=== PATIENT | female | born 1975 | race Caucasian/White ===

== ENCOUNTER 2020-10-05 09:06 | Day surgery (SDC) | payer OTHER, SELFPAY ==
--- NOTE | 2020-10-04 11:55 | HP.PCM_ITS ---
History and Physical Date of Admission: 10/05/20 Pre-Op History and Physical ? HPI: The patient is a 45 year old female presenting for pre-operative visit. She is scheduled for hysteroscopy, D&C, Jojo endometrial ablation, for abnormal uterine bleeding. Patient has failed Mirena IUD. Is not a candidate for combined oral contraceptives due to history of migraines with aura on 10/05/20. Procedure discussed along with risks, benefits and complications. Other alternatives discussed for management. Consent form signed? Yes. ? ? PAST MEDICAL HISTORY PAST MEDICAL HISTORY Diagnosis Date ? Asthma ? ? Crohn's ? ? Physical deconditioning 08/24/2012 ? Psoriasis ? ? Uveitis ? ? ? PAST SURGICAL HISTORY PAST SURGICAL HISTORY Procedure Laterality Date ? ANESTH, SECTION ? 1992 ? c section ? BOWEL RESECTION HX ? 07/2015 ? LUMPECTOMY/RADIOTHERAPY DIAG MAMM/A10 ? 1997 ? PAST SURGICAL HISTORY OF ? ? ? appendectomy ? ? ? CURRENT MEDICATIONS Current Outpatient Medications Medication Sig Dispense Refill ? rizatriptan ([employer]) 10 mg disintegrating tablet rizatriptan 10 mg disintegrating tablet take one at onset of migraine may repeat in 2 hours. no more than 2 in 24 hrs ? ? ? clobetasol (TEMOVATE) 0.05 % cream clobetasol 0.05 % topical cream APPLY A THIN LAYER TO THE AFFECTED AREA(S) BY TOPICAL ROUTE 2 TIMES PER DAY ? ? ? albuterol HFA (PROAIR HFA) 90 mcg/actuation inhaler Inhale 2 Puffs as instructed every 4 hours as needed. 1 Inhaler 11 ? mometasone (NASONEX) 50 mcg/actuation nasal spray Use 2 Sprays in the nose once daily. 3 Bottle 3 ? Levocetirizine (XYZAL) 5 mg tablet Take 1 tablet by mouth once daily. 90 tablet 3 ? albuterol (PROVENTIL) 2.5 mg/0.5 mL nebulizer solution Use 0.5 mL via nebulizer every 6 hours as needed for Wheezing/Shortness of Breath. 100 Vial 0 ? MAGNESIUM CARBONATE ORAL Take 1 capsule by mouth once daily. ? ? ? inFLIXimab (REMICADE) 100 mg injection 700 MG IV Q 8 WKS. PREMEDICATE WITH TYLENOL 650 MG PO, BENADRYL 50 MG PO 7 Vial 8 ? Cholecalciferol, Vitamin D3, 3,000 unit tab Take 1 tablet by mouth once daily. ? ? ? KRILL OIL ORAL Take 1 tablet by mouth once daily. ? ? ? LACTOBACILLUS ACIDOPHILUS (PROBIOTIC ORAL) Take by mouth. Occasionally. ? ? ? MULTIVITAMIN TAB Take one(1) tablet occasionally. ? 0 ? fluticasone-salmeterol HFA (ADVAIR HFA) 230-21 mcg/actuation inhaler Inhale 2 Puffs as instructed twice daily. 1 Inhaler 11 ? tretinoin (RETIN-A) 0.05 % cream Apply a pea size amount as tolerated at night to face 45 g 6 ? No current facility-administered medications for this visit. ? Facility-Administered Medications Ordered in Other Visits Medication Dose Route Frequency Provider Last Rate Last Admin ? iron sucrose 200 mg in NaCl 0.9% 100ml (VENOFER) 200 mg INTRAVENOUS ONCE Jon A Masci ? diphenhydrAMINE 50 mg injection (BENADRYL) 50 mg INTRAVENOUS PRN Jon A Masci ? NaCl 0.9% iv infusion 500-999 mL/hr INTRAVENOUS PRN Jon A Masci ? hydrocortisone sodium succinate (PF) 100 mg injection (Solu-CORTEF) 100 mg INTRAVENOUS PRN Jon A Masci ? EPINEPHrine HCl (PF) 1 mg/mL (1 mL) 0.3 mg injection 0.3 mg INTRAMUSCULAR PRN Jon A Masci ? ? ALLERGIES: Asacol [Mesalamine], Gadolinium-Containing Contrast Media, Humira [Adalimumab], Imuran [Azathioprine Sodium], and Sulfa (Sulfonamide Antibiotics) ? PERSONAL HISTORY: SOCIAL HISTORY Social History ? Tobacco Use ? Smoking status: Former Smoker ? ? Packs/day: 1.00 ? ? Years: 10.00 ? ? Pack years: 10.00 ? ? Types: Cigarettes ? ? Quit date: 01/24/1995 ? ? Years since quittin.7 ? Smokeless tobacco: Never Used Substance Use Topics ? Alcohol use: Yes ? ? Comment: occassionally ? Drug use: No ? FAMILY HISTORY: FAMILY HISTORY FAMILY HISTORY Problem Relation Age of Onset ? other (juvenile rheumatoid arthritis) Son ? ? other (ankylosing spondylitis) Son ? ? other (Crohns) Mother ? ? other (Liver cancer) Mother ? ? Arthritis Daughter ? ? 2 daughters juvenile arthritis ? Heart Father ? ? ? REVIEW OF SYMPTOMS: negative except as noted above PHYSICAL EXAMINATION: ? VITALS: Blood pressure 108/70, height 5' 5 (1.651 m), weight 184 lb (83.5 kg), last menstrual period 09/08/2020. ? GENERAL: The patient is well nourished, well hydrated in no acute distress. , The patient is oriented to time, place, and person. NECK: Supple. No lynphadenopathy, normal thyroid, no thyromegaly. GENITALIA: exam deferred WET PREP: Not indicated ? Indication Abnormal uterine bleeding Impression Uterus normal size and contour. Endometrial thickness 2.9mm. There are no endometrial lesions identified. The myometrium is heterogeneous which can be seen with adenomyosis. There are no fibroids noted. There is no IUD appreciated. Right ovary not visualized Left ovary appears normal. no free fluid in the culdesac Recommendations Follow up as clinically indicated. Menstrual History LMP on 08/18/2020 Method Transvaginal, 3D ultrasound examination. Uterus Uterus: Visualized Uterus position: anteverted Myometrium: suspicious of adenomyosis Uterus long 90 mm Uterus ap 42 mm Uterus tr 48 mm Uterus Vol 95.3 cm? Endometrial thickness, total 2.9 mm IUCD Position control Location: no IUCD seen in the endometrial cavity Right Ovary Rt ovary: Not visualized Left Ovary Lt ovary: Visualized Lt ovary D1 19 mm Lt ovary D2 11 mm Lt ovary D3 12 mm Lt ovary Vol 1.3 cm? Cul de Sac Visualized. no free fluid visualized ? IMPRESSION: AUB, failed Mirena IUD, not OCPcandidate ? PLAN: Hysteroscopy, D&C, Jojo Ablation ? Pt has been counseled on risks/benefits and alternatives of surgery including but not limited to anesthesia, bleeding, infection, uterine perforation with subsequent injury to pelvic structures including bowel, bladder, ureters and ve ssels. Pt wishes to proceed with surgery at this time. Covid testing and risks reviewed. ? Discussed with the patient if she fails this would recommend a hysterectomy. Patient does have a history of Crohn's disease a previous bowel resection so she is a high risk surgical candidate. Ultrasound does show possible adenomyosis but based on her age of 45 were hoping that the Jojo would at least temporize the bleeding for her to progress to menopausal status. ? ? ? I have reviewed and updated past medical and surgical history, medications and allergies Nimco Herndon MD Procedure Criteria Procedure Type: Elective COVID Risk Discussion: The surgeon/proceduralist and patient have discussed in detail the risk of exposure to and/or potential harm posed by the COVID-19 virus with having a surgery/procedure at this time versus the risk of delaying the surgery/procedure. It is not possible to know either the risk of delaying the surgery or procedure or chance of getting an infection with perfect accuracy, but a joint decision was made between the patient and the surgeon/proceduralist to proceed at this time with the scheduled surgery/procedure as indicated on the consent form.
[2020-10-05] VITALS (8 sets, daily range): BP systolic 103–134; BP diastolic 71–87; PULSE 83–102; RESP 16–18; TEMP 36.4–37.2; O2SAT 96–100; BMI 30.8
[2020-10-05 09:30] LABS: Internal QC Validated? YES +Cl - CLEAR BKGD; Pregnancy, Urine Negative Negative
[2020-10-05 09:36] LABS: Hemoglobin 12.4 g/dL (12.0-15.0); Mean Corp Hgb Conc 32.6 g/dL (32-36); Mean Corpuscular Hgb 29.9 pg (27.0-32.0); Mean Corpuscular Volume 91.6 fL (81-99); Mean Platelet Vol. 8.8 fl (6.2-12.0); Platelet Count 465 K/mm3 (150-450); RBC Distribution Width CV 13.2 % (11.6-14.6); RBC Distribution Width SD 44.1 fl (35.1-43.9); Red Blood Count 4.15 M/mm3 (4.2-5.4); White Blood Count 6.7 K/mm3 (4.4-11.0)
[2020-10-05] MEDS: Lactated Ringers 1,000 ML 100 ML IV (09:47)
--- NOTE | 2020-10-05 10:30 | EMB_PTH ---
PATIENT: OSVALDO GABRIEL LOC: [facility] [place][id number] AGE/SX: 45/F ROOM: RE10/05/[address]: Dr. Nimco Decker, MDDOB: 1975 BED: DIS: 10/05/2020 SPEC #: [id number] RECD: 10/05/20 13:57 STATUS: JUDE JOY #: [id number] ELVI: 10/05/20 10:[address]: Nimco Decker DEPT: SURGICAL PATHOLOGY RECD BY: Tessa Howard Tissues: Endometrium, NOS Procedures: Surgery Specimen Level IV HEADER OPERATION: Hysteroscopy, D & C Jojo, endometrial ablation PRE-OP DIAGNOSIS: Abnormal uterine bleeding TISSUE SUBMITTED: Uterine curettings MICROSCOPIC DIAGNOSIS Endometrium, curettings: Proliferative endometrium with minimal disorder. Rare strips of benign superficial endocervix. AM:memo 10/09/20 MICROSCOPIC DESCRIPTION Slides are reviewed. GROSS DESCRIPTION Received in fixative is one container labeled with the patient's name and designated uterine curettings. The specimen consists of multiple fragments of hemorrhagic soft tissue mixed with blood clot that in aggregate measure 5 x 3 x 0.3 cm. The specimen is totally submitted in two cassettes. / SJ:rg 10/06/20 TC:5 CPT: 35672
--- NOTE | 2020-10-05 10:33 | DCINST_ITS ---
Discharge Diet: No Restrictions Discharge Activity: Return to Normal Activity, May Shower, May Take a Tub Bath - in 2 weeks. May resume sexual activity in: 1 week Call your doctor if you observe: Fever of 101 or Higher, Using more than one pad per hour Allergies/Adverse Reactions: Allergies adalimumab [From Humira] Allergy (Verified 10/05/20 09:26) Swelling Gadolinium-MRI Contrast Medium [MRI] Allergy (Verified 10/05/20 09:26) Hives Sulfa (Sulfonamide Antibiotics) Allergy (Verified 10/05/20 09:26) Hives amoxicillin Adverse Reaction (Verified 10/05/20 09:26) Rash azathioprine [From Imuran] Adverse Reaction (Verified 10/05/20 09:) PT UNSURE OF REACTION body aches/fever mesalamine [From Asacol] Adverse Reaction (Verified 10/05/20 09:26) Swelling joint pain Medications to take at Discharge Albuterol IH (ProAir) [Proair Hfa (SP)Vent Pts] 1 - 2 puff INHALATION Q6H PRN PRN 09/29/20 Cetirizine HCl [Zyrtec] 10 mg PO DAILY 09/29/20 Cholecalciferol (Vitamin D3) [Vitamin D3] 1 tab PO MOFR 09/29/20 Infliximab [Remicade] mg IV X1 09/29/20 Iron Infusion 1 unit IV 09/29/20 L.acidoph,Paracasei, B.lactis [Probiotic] 1 ea PO BID 09/29/20 Magnesium Oxide [Magnesium] 500 mg PO QHS 09/29/20 Mv-Min/Iron/Folic/Calcium/Vitk [Women's Multivitamin Tablet] 1 ea PO DAILY 09/29/20 Primary Care Physician: JANI HILL [Other] Test Results: Test results from this visit will be discussed in further detail at your follow- up appointment, if applicable. Please Follow Up With: Nimco Decker MD When: as scheduled in 2 weeks - call [phone] if appointment is needed
--- NOTE | 2020-10-05 11:00 | OP.PCM_ITS ---
Report of Operation Date of Procedure: 10/05/20 - start 1048/end 1056 Pre-Operative Diagnosis: AUB Post-Operative Diagnosis: same Surgery/Procedure Performed:: Hysteroscopy, D&C, Jojo Endometrial Ablation Description of Surgical Findings:: posterior Aspect of uterus with small amount of tissue- otherwise cavity appears WNL. Both ostia visualized. program director substance abuse: Charli Mcdonough MS3 Type of Anesthesia:: MAC Special Medications: none Specimen's removed: Endometrial curettings Drains: none Estimated Blood Loss (mL): <5cc Fluids Replaced: 800 Description of Procedure: After informed consent was obtained patient taken to the operating room she is placed in supine position she is given anesthesia simply self insert she is prepped draped normal sterile fashion. Bladder was drained prior to the start of the procedure. At this time the weighted speculum was placed the posterior fornix of the vagina then a single-tooth tenaculum was used to grasp the anterior lip of the cervix. At this time the uterus was sounded to approximately 10 cm the endocervical canal sounded to 4 cm. Next cervix was dilated in incremental fashion. Once adequate dilatation was achieved the hysteroscope was inserted using normal saline as distention medium. On hysteroscopy there were no gross abnormalities small amount of tissue on posterior aspect. Both tubal ostia were visualized. At this time sharp curettage was performed which yielded small amount of endometrial tissue. tissue will be sent to pathology for evaluation. At this time the Jojo device was opened. The Jojo was set at 6 cm. The device was activated. Prior to activation the field test was performed and cavity was intact. The device was then fired and activated for 120 seconds. Once the 120 seconds was completed the device was removed intact and the tenaculum was removed. Good hemostasis was appreciated. Weighted speculum was removed. Vaginal sweep was performed is negative. There were no complications. Anticipated normal postoperative course for this patient. Instrument and lap count were correct ?2. Grafts/Implants Used: none - Complications None - Admit VTE Documentation VTE Present on Admission: Yes VTE Mechan Device Prophylaxis: SCD's VTE Pharm Prophylaxis ordered?: No
[2020-10-05] MEDS: HYDROcodone Bitartrate/Apap 5/325 Tablet PO (12:03)
== END 2020-10-05 12:38 | disposition home or self-care (01) ==
LOC: SDC 09:08 → AC 09:09
PROVIDERS: Anesthesiology; Referring Provider Obstetrics & Gynecology; Visit Provider Obstetrics & Gynecology
PROC: 0U5B8ZZ Destruction of Endometrium, Via Natural or Artificial Opening Endoscopic (ICD-10-PCS; CPT 58558; principal; 2020-10-05 10:15)
DX: N93.9 Abnormal uterine and vaginal bleeding, unspecified (principal); D64.9 Anemia, unspecified; J45.909 Unspecified asthma, uncomplicated; K50.90 Crohn's disease, unspecified, without complications; Z87.19 Personal history of other diseases of the digestive system; Z79.899 Other long term (current) drug therapy; Z87.891 Personal history of nicotine dependence; Z20.828 Contact with and (suspected) exposure to other viral communicable diseases
CPT/HCPCS: 00952; 58563; 81025; 85027; 87426; 88305; C9803; J7120; J2405